=== PATIENT | female | born 1995 | race Caucasian/White ===

== ENCOUNTER → 2023-12-02 14:00 | Outpatient (BNVA) | payer OTHER, SELFPAY | PROVIDERS: Visit Provider Family Medicine | DX: E28.2 Polycystic ovarian syndrome (principal) | CPT/HCPCS: 80053; 80061; 84439; 84443; 85025 ==

== ENCOUNTER 2023-12-09 06:22 | Outpatient (CLI) | payer OTHER, SELFPAY ==
--- NOTE | 2023-12-09 06:30 | USR_ITS ---
PROCEDURE INFORMATION: Exam: US Duplex Artery and Vein of the Abdominal and/or Reproductive Organs. Complete Ovaries Exam date and time: 12/09/2023 6:31 AM Age: 28 years old Clinical indication: Condition or disease; Ovarian conditions; Other: Pcos TECHNIQUE: Imaging protocol: Real-time duplex ultrasound scan of the arterial and venous flow with color Doppler flow and spectral waveform analysis with image documentation. Complete duplex exam focused on the ovaries. Duplex exam was performed to evaluate for torsion and other vascular conditions. Total images: 66 COMPARISON: No relevant prior studies available. FINDINGS: Right ovary/adnexa: Normal duplex of the ovary. Normal Doppler waveforms and color flow. Arterial and venous flow are normal. No evidence of ovarian torsion. Left ovary/adnexa: Normal duplex of the ovary. Normal Doppler waveforms and color flow. Arterial and venous flow are normal. No evidence of ovarian torsion. PROCEDURE INFORMATION: Exam: US Pelvis, Transvaginal Exam date and time: 12/09/2023 6:31 AM Age: 28 years old Clinical indication: Condition or disease; Ovarian conditions; Other: Pcos LABS AND CLINICAL REPORTS: Last menstrual period start date: 11/01/2023 TECHNIQUE: Imaging protocol: Real-time transvaginal pelvic ultrasound with image documentation. Transvaginal imaging was used for better evaluation of the endometrium, adnexa, and/or cervix. COMPARISON: No relevant prior studies available. FINDINGS: Uterus: Anteverted uterus. Uterus unremarkable. Uterus measures 7.2 x 2.9 x 3.2 cm giving a volume of 35 mL. Cervix: Minimal fluid seen within the uterine cervical canal. Right ovary/adnexa: Right ovary appears unremarkable. Normal vascularity is demonstrated by color Doppler within the right ovary. Normal waveforms are demonstrated within the right ovary. Right ovary measures 2.6 x 2.0 x 1.3 cm giving a volume of 3 mL. Left ovary/adnexa: Left ovary appears unremarkable. Normal vascularity is demonstrated by color Doppler within the left ovary. Normal waveforms are demonstrated within the left ovary. Left ovary measures 3.0 x 1.4 x 2.2 cm giving a volume of 5 mL. Intraperitoneal space: No free fluid. US/US transvaginal [id number] IMPRESSION: Normal ovarian arterial and venous vascular flow. No evidence ovarian torsion. IMPRESSION: Minimal fluid seen within the uterine cervical canal.
== END 2023-12-09 06:23 | disposition home or self-care (01) ==
LOC: RAD 06:22
PROVIDERS: Visit Provider Family Medicine
DX: E28.2 Polycystic ovarian syndrome (principal)
CPT/HCPCS: 76830

== ENCOUNTER → 2025-02-13 15:23 | Outpatient (BNVA) | payer OTHER, SELFPAY | PROVIDERS: PCP Family Medicine; Visit Provider Nurse Practitioner Women's Health | DX: Z01.419 Encounter for gynecological examination (general) (routine) without abnormal findings (principal) | CPT/HCPCS: 88175 ==